=== PATIENT | female | born 1940 | race Two or more races ===

== ENCOUNTER 2023-04-18 04:26 | Inpatient (IN) | payer OTHER ==
[~2023-04-18] VITALS: Ht 162.6 cm; Wt 73.5 kg
[2023-04-18] MEDS ORDERED: GRALISE600 MG PO (05:00)
[2023-04-18] MEDS ORDERED: LIPITOR40 MG PO (05:01)
[2023-04-18] MEDS ORDERED: LEVOTHYROXINE25 MCG PO (05:01)
[2023-04-18] MEDS ORDERED: TOPROL XL50 M1 PO (05:01)
[2023-04-18] MEDS ORDERED: NORVASC5 MG PO (05:02)
[2023-04-18 06:29] LABS: ABG PH 7.414 (7.35-7.45); ABG pCO2 47.7 mmHg (35-45); BASE EXCESS 4.3 mmol/l; BICARBONATE 29.8 mmol/l (23-25); SaO2 93.5 %; Tco2 31.3 mmol/l; o2 21 %; puncture site RADIAL RIGHT
[2023-04-18 06:30] LABS: allen test SATISFACTORY
[2023-04-18 07:19] LABS: ALBUMIN 3.1 gm/dL (3.4-5.0); BILIRUBIN TOTAL 0.35 mg/dL (0.3-1.2); CALCIUM 8.6 mg/dL (8.5-10.1); CREATININE SERUM 1.11 mg/dL (0.55-1.02); GFR 46.83; GLOBULINA 3.7 G/DL (2.4-3.5); POTASSIUM 3.18 mEq/L (3.5-5.1); TOTAL PROTEIN 6.8 gm/dL (6.4-8.2)
[2023-04-18 07:41] LABS: HEMATOCRIT 38.2 % (36.0-45.00); HEMOGLOBIN 12.7 g/dL (12.0-15.00); MEAN CELL VOLUME 89.8 fL (80.00-100.00); MEAN CORPUSCULAR HEMOGLOBIN 29.9 pg (27.00-32.0); MEAN CORPUSCULAR HGB CONC 33.4 g/dl (32.0-36.0); PLATELET COUNT 211 K/uL (150-450); RED BLOOD COUNT 4.26 M/uL (4.00-6.00); RED CELL DISTRIBUTION WIDTH 14.1 % (11.5-14.5)
[2023-04-18 08:01] LABS: PH,URINE 5.5 (5.0-8.0); URINE APPEARANCE Clear; URINE BILIRRUBIN Negative (NEGATIVE); URINE BLOOD Negative; URINE COLOR Dark Yellow; URINE GLUCOSE Negative (NEGATIVE); URINE LEUKOCYTE Moderate; URINE NITRATE Negative; URINE PROTEIN 30 (NEGATIVE)
[2023-04-18 08:05] LABS: URINE BACTERIA 114.6 uL (0.0-1933); URINE EPITHELIAL CELLS 68.9 uL (0.0-38.8); URINE RBC 6.7 uL (0.0-20.8); URINE WBC 86.8 uL (0.0-23.2)
[2023-04-18 19:47] LABS: D DIMER 1.83 MG/L; INR 1.21; PARTIAL THROMBOPLASTIN TIME 28.8 SECONDS (22.0-34.0); PROTHROMBIN TIME 12.5 SECONDS (9.0-11.5)
[2023-04-18 21:20] LABS: PH,URINE 5.5 (5.0-8.0); URINE APPEARANCE Clear; URINE BILIRRUBIN Negative (NEGATIVE); URINE BLOOD Moderate; URINE COLOR Yellow; URINE GLUCOSE Negative (NEGATIVE); URINE LEUKOCYTE Small; URINE NITRATE Negative; URINE PROTEIN 30 (NEGATIVE); URINE UROBILINOGEN 0.2 E.U./dl
[2023-04-18 21:24] LABS: URINE BACTERIA 54.1 uL (0.0-1933); URINE EPITHELIAL CELLS 11.1 uL (0.0-38.8); URINE WBC 12.2 uL (0.0-23.2)
[2023-04-18 22:45] LABS: ABG PO2 63.2 mmHg (80-100); ABG pCO2 53.4 mmHg (35-45); BASE EXCESS 3.4 mmol/l
[2023-04-18 22:46] LABS: Tco2 31.6 mmol/l; allen test SATISFACTORY; o2 21 %; puncture site RADIAL RIGHT
[2023-04-18 22:49] LABS: SaO2 91.2 %
[2023-04-19 21:21] LABS: ALBUMIN 2.9 gm/dL (3.4-5.0); BILIRUBIN TOTAL 0.15 mg/dL (0.3-1.2); CALCIUM 8.3 mg/dL (8.5-10.1); CREATININE SERUM 0.83 mg/dL (0.55-1.02); GFR 65.49; GLOBULINA 3.9 G/DL (2.4-3.5); POTASSIUM 3.49 mEq/L (3.5-5.1); TOTAL PROTEIN 6.8 gm/dL (6.4-8.2); TSH 0.656 uIU/mL (0.358-3.74)
[2023-04-20 07:45] LABS: ALBUMIN 3.1 gm/dL (3.4-5.0); CALCIUM 8.2 mg/dL (8.5-10.1); CREATININE SERUM 0.95 mg/dL (0.55-1.02); GFR 56.04; MAGNESIUM 1.8 mg/dL (1.8-2.4); PHOSPHOROUS 3.3 mg/dL (2.5-4.9); POTASSIUM 3.88 mEq/L (3.5-5.1)
[2023-04-21 14:11] LABS: ABG PH 7.226 (7.35-7.45)
[2023-04-21 14:13] LABS: ABG PO2 92.3 mmHg (80-100); ABG pCO2 72.1 mmHg (35-45); BASE EXCESS -0.5 mmol/l; BICARBONATE 29.3 mmol/l (23-25); SaO2 95.1 %; Tco2 31.5 mmol/l; o2 100 %
[2023-04-21 14:14] LABS: allen test SATISFACTORY; puncture site RADIAL RIGHT
[2023-04-22 06:39] LABS: HEMATOCRIT 37.4 % (36.0-45.00); HEMOGLOBIN 11.7 g/dL (12.0-15.00); MEAN CELL VOLUME 93.2 fL (80.00-100.00); MEAN CORPUSCULAR HEMOGLOBIN 29.3 pg (27.00-32.0); MEAN CORPUSCULAR HGB CONC 31.4 g/dl (32.0-36.0); PLATELET COUNT 205 K/uL (150-450); RED BLOOD COUNT 4.01 M/uL (4.00-6.00); RED CELL DISTRIBUTION WIDTH 14.8 % (11.5-14.5)
[2023-04-22 07:02] LABS: CALCIUM 8.4 mg/dL (8.5-10.1); CREATININE SERUM 1.46 mg/dL (0.55-1.02); GFR 34.13; POTASSIUM 5.22 mEq/L (3.5-5.1)
[2023-04-22 16:23] LABS: ABG PH 7.148 (7.35-7.45); ABG PO2 78.2 mmHg (80-100); ABG pCO2 77.6 mmHg (35-45); BASE EXCESS -4.6 mmol/l; BICARBONATE 26.3 mmol/l (23-25); SaO2 89.9 %; Tco2 28.7 mmol/l; allen test SATISFACTORY; o2 100 %; puncture site RADIAL LEFT
[2023-04-22 17:40] LABS: ABG PO2 77.1 mmHg (80-100); BASE EXCESS -3.6 mmol/l; BICARBONATE 26.8 mmol/l (23-25); SaO2 90.4 %
[2023-04-22 17:41] LABS: ABG PH 7.177 (7.35-7.45); Tco2 29.1 mmol/l; allen test SATISFACTORY; o2 70 %; puncture site RADIAL LEFT
[2023-04-23 10:11] LABS: ABG PH 7.241 (7.35-7.45); ABG PO2 94.9 mmHg (80-100); ABG pCO2 59.5 mmHg (35-45); BASE EXCESS -3.5 mmol/l; SaO2 95.5 %; Tco2 26.8 mmol/l
[2023-04-23 10:12] LABS: allen test SATISFACTORY; o2 70 %; puncture site RADIAL RIGHT
[2023-04-24 06:59] LABS: ABG PO2 94.9 mmHg (80-100); ABG pCO2 62.8 mmHg (35-45); BASE EXCESS -6.5 mmol/l; BICARBONATE 22.9 mmol/l (23-25); Tco2 24.8 mmol/l
[2023-04-24 07:00] LABS: o2 70 %; puncture site RADIAL RIGHT
[2023-04-24 07:01] LABS: allen test SATISFACTORY
[2023-04-24 07:03] LABS: SaO2 94.5 %
[2023-04-25 06:44] LABS: ABG PH 7.138 (7.35-7.45)
[2023-04-25 06:45] LABS: ABG pCO2 70.3 mmHg (35-45)
[2023-04-25 06:46] LABS: ABG PO2 161.6 mmHg (80-100); BASE EXCESS -7.2 mmol/l; BICARBONATE 23.3 mmol/l (23-25); Tco2 25.4 mmol/l
[2023-04-25 06:47] LABS: allen test SATISFACTORY; o2 100 %; puncture site RADIAL LEFT
[2023-04-25 06:49] LABS: SaO2 98.6 %
[2023-04-26 06:06] LABS: HEMOGLOBIN 11.7 g/dL (12.0-15.00); MEAN CELL VOLUME 97.9 fL (80.00-100.00); MEAN CORPUSCULAR HEMOGLOBIN 30.3 pg (27.00-32.0); MEAN CORPUSCULAR HGB CONC 30.9 g/dl (32.0-36.0); PLATELET COUNT 178 K/uL (150-450); RED BLOOD COUNT 3.88 M/uL (4.00-6.00); RED CELL DISTRIBUTION WIDTH 16.6 % (11.5-14.5)
[2023-04-26 06:52] LABS: ALBUMIN 2.3 gm/dL (3.4-5.0); BILIRUBIN TOTAL 0.3 mg/dL (0.3-1.2); CALCIUM 8.2 mg/dL (8.5-10.1); CREATININE SERUM 3.78 mg/dL (0.55-1.02); GFR 11.39; GLOBULINA 3.4 G/DL (2.4-3.5); TOTAL PROTEIN 5.7 gm/dL (6.4-8.2)
[2023-04-26 07:22] LABS: POTASSIUM 6.79 mEq/L (3.5-5.1)
== END 2023-04-26 06:05 | disposition expired | DRG 189 ==
LOC: ER 04:27 → ICU-2 19:29 → ICU 04-19 22:34
PROVIDERS: General Practice; Internal Medicine; Internal Medicine Nephrology; ADMIT Internal Medicine; ATTEND Internal Medicine
PROC: BB24ZZZ Computerized Tomography (CT Scan) of Bilateral Lungs (ICD-10-PCS; principal; 2023-04-18)
PROC: B246ZZZ Ultrasonography of Right and Left Heart (ICD-10-PCS; 2023-04-18)
PROC: 3E0F7GC Introduction of Other Therapeutic Substance into Respiratory Tract, Via Natural or Artificial Opening (ICD-10-PCS; 2023-04-19)
PROC: 02HV33Z Insertion of Infusion Device into Superior Vena Cava, Percutaneous Approach (ICD-10-PCS; 2023-04-20)
PROC: 5A0935A Assistance with Respiratory Ventilation, Less than 24 Consecutive Hours, High Flow/Velocity Cannula (ICD-10-PCS; 2023-04-21)
PROC: 5A09557 Assistance with Respiratory Ventilation, Greater than 96 Consecutive Hours, Continuous Positive Airway Pressure (ICD-10-PCS; 2023-04-22)
PROC: 5A12012 Performance of Cardiac Output, Single, Manual (ICD-10-PCS; 2023-04-26)
DX: J96.01 Acute respiratory failure with hypoxia (principal); A41.9 Sepsis, unspecified organism; J18.8 Other pneumonia, unspecified organism; J10.00 Influenza due to other identified influenza virus with unspecified type of pneumonia; N39.0 Urinary tract infection, site not specified; N17.8 Other acute kidney failure; I48.19 Other persistent atrial fibrillation; E87.6 Hypokalemia; E03.8 Other specified hypothyroidism; E78.49 Other hyperlipidemia